=== PATIENT | female | born 1970 | race Caucasian/White ===

== ENCOUNTER 2016-06-17 08:25 | Emergency (ER) | payer OTHER ==
[~2016-06-17] VITALS: Ht 167.6 cm; Wt 109.1 kg
[~2016-06-17 08:25] MED LIST: BUPR1FIL3 SL; GABA-502 PO; HYDR-4003 PO; LEVO200T6 PO; PENI500T PO
[2016-06-17 08:33] VITALS: BP 142/94; PULSE 106; RESP 16; O2SAT 98
[2016-06-17] MEDS ORDERED: HYDR-656 PO (08:48)
--- NOTE | 2016-06-17 09:05 | ED.REPORT ---
HPI-Dental/Mouth Prob Date of Service Jun 17, 2016 ED Provider: Marla Johnson MD 46 year old female with a history of opioid dependence, currently on Suboxone presents to the ER complaining of right tooth pain. Pain is so severe that it routinely awakens her from sleep. Symptoms have been treated with Tylenol and ibuprofen with minimal relief. She states that the pain has been present for about a year, which resulted in the extraction of two right molars two months ago. At that time she felt pain in a third tooth, but the doctors felt that it could be spared. Since then, the pain has gradually worsened. She was scheduled for follow up two weeks following her extraction but was unable to make the appointment due to work obligations. Patient has an appointment for 07/10/16 at [facility]. Nursing Notes Stated Complaint: SEVERE DENTAL PAIN Chief Complaint: Dental Nursing Notes Reviewed: Yes Allergies: Coded Allergies: No Known Allergies (Unverified Allergy, Unknown, 04/20/14) Scheduled Amoxicillin (Amoxicillin) 500 Mg Capsule 500 MG PO TID Levothyroxine (Levothyroxine) 200 Mcg Tablet 200 MCG PO DAILY Scheduled PRN hydrOXYzine Hcl (HydrOXYzine Hcl) 25 Mg Tablet 25 MG PO QID PRN PRN For Anxiety General Time Seen by MD: 08:36 Chief Complaint Mouth pain, Tooth pain Hx Obtained From: Patient Arrived By: Walk-in Onset Occurred: More than a week ago... (>6 months) Symptom Duration: Since onset Pertinent Negative: Pt denies other symptoms Similar Sx Previous: Yes Past Medical History Past Medical History H/o chronic back pain Opioid dependence, currently on Suboxone Past Surgical History Left elbow surgery Family History noncontributory Smoking History Current Every Day Smoker Social History Other Social History: Lives with children, College student Ambulatory Status Independent Review of Systems Constitutional: Denies: Chills, Fever Ears / Nose / Throat: Reports: Mouth pain, Toothache, Denies: Earache bilateral, Sore throat, Throat pain Respiratory: Denies: Non-productive cough GI: Denies: Abdominal pain, Diarrhea, Nausea, Vomiting Complete sys rev & neg: except as marked. Physical Exam Initial Vital Signs Vital Signs (First) Date Time Temp Pulse Resp B/P Pulse Ox O2 Delivery O2 Flow Rate FiO2 06/17/16 08:33 36.6 106 16 142/94 98 Room Air Initial VS: Reviewed General/Constitutional: Well-developed, Well-nourished Head / Eyes: Atraumatic, Normocephalic, PERRL Extremities: Vascular intact, Neuro intact, No swelling, No tenderness Skin: Warm, Dry, No cyanosis Neurologic: Alert, Oriented, Nonfocal ENT: Airway patent, Mucous membranes moist, No facial swelling Tooth #2 tender. Moderate decay. No obvious abscess. Not grossly broken. Teeth #3 and 4 have been removed. No submandibular adenopathy. Neck: Supple, No meningismus, Full range of motion, No adenopathy, No swelling , Non-tender, No masses Re-Eval/Medical Decision Re-Evaluation/Progress : Time of Eval: 09:10 Re-Evaluation/Progress Note: Discussed physical examination findings and plan to discharge. Patient is amenable to the plan. Return precautions given. All other questions addressed. Counseled Regarding: Diagnosis, Need for follow-up, When/why to return to ED Discharge & Departure Primary Impression: Pain, dental Additional Impression: Dental abscess Disposition: Home Discharge Condition All VS Reviewed: Yes Condition: Stable Patient Instructions: Dental Abscess (ED) Additional Instructions: Take amoxicillin as prescribed. A prescription has been sent electronically to [facility] for you today. Ibuprofen as needed for pain, max of 12 daily (3 pills 4x/day or 4 pills 3x/day) . Contact [facility] to see if there is any way to expedite your appointment. Return to the ER if you develop fever, chills, nausea, vomiting, or any other worsening or concerning symptoms. Referrals: NOPCP (PCP) [facility] Jair Attestation Portions of this note were transcribed by Jennifer Aguayo. I, Dr. Johnson, personally performed the history, physical exam and medical decision-making; I reviewed and confirmed the accuracy of the information in the transcribed note. Signed by: Jair Gonzalez, 06/17/2016 at 09:37 copies to: [facility] Marla Johnson MD Jun 17, 2016 09:04 JENNIFER AGUAYO Jun 17, 2016 09:12
[2016-06-17] MEDS ORDERED: AMOX500C2 PO (09:35)
== END 2016-06-17 09:43 | disposition home or self-care (01) ==
LOC: SED 08:25
DX: K12.2 Cellulitis and abscess of mouth (principal); F11.20 Opioid dependence, uncomplicated; F17.200 Nicotine dependence, unspecified, uncomplicated; Z98.818 Other dental procedure status

== ENCOUNTER 2016-11-14 15:36 | Emergency (ER) | payer OTHER ==
[~2016-11-14] VITALS: Ht 167.6 cm; Wt 130.0 kg
[~2016-11-14 15:36] MED LIST changes: +AMOX500C2 PO; -BUPR1FIL3 SL; -GABA-502 PO; -HYDR-4003 PO; +HYDR-656 PO; -PENI500T PO
[2016-11-14 15:40] VITALS: BP 152/99; PULSE 99; RESP 20; O2SAT 95
--- NOTE | 2016-11-14 17:02 | ED.REPORT ---
HPI-Back Pain 40 and Over Date of Service Nov 14, 2016 ED Provider: Doc,Ed MD History of Present Illness: back pain worse times a month. Saw Dr. Baca at residency clinic. doing gapabentin. started prednisone from urgent care. right leg pain and shoulder pain also. work at the [employer], started about 3 months ago. Appointment 11/26 at [facility] with ortho. long hx of back pain. on day 3 of prednisone 60 mg. on planned lay off at work now. supposed to return to work on 11/27. last mri 10/03 pain Nursing Notes Stated Complaint: BACK PAIN Chief Complaint: Back Pain or Injury Nursing Notes Reviewed: Yes Allergies: Coded Allergies: No Known Allergies (Unverified Allergy, Unknown, 11/14/16) Scheduled Amoxicillin (Amoxicillin) 500 Mg Capsule 500 MG PO TID Levothyroxine (Levothyroxine) 200 Mcg Tablet 200 MCG PO DAILY Scheduled PRN hydrOXYzine Hcl (HydrOXYzine Hcl) 25 Mg Tablet 25 MG PO QID PRN PRN For Anxiety General Time Seen by MD: 17:01 Chief Complaint Back pain Hx Obtained From: Patient Sudden in Onset?: No Onset Occurred: More than a week ago... (1 month) Symptom Duration: Since onset Caused by: Spontaneous/no mechanism Severity: Current: Pain level 8 out of 10 Recent Healthcare: Recent doctor visit (3 visits in the last week) Past Medical History Past Medical History H/o chronic back pain. no suboxone at present 10/2016 Past Surgical History Left elbow surgery Family History noncontributory Smoking History Current Every Day Smoker (3 cig a day for 30 years) Social History clean for 3 years Alcohol Use: Denies alcohol use Drug Use: Denies drug use Other Social History: Lives with children, College student Occupation lives with boyfriend,11/14/2016 Ambulatory Status Independent Review of Systems Basic Review of Systems Eyes: Vision NL, No discharge Skin: No bruising, No rash, No itch Psychiatric: Normal thought content Physical Exam Initial Vital Signs Vital Signs (First) Date Time Temp Pulse Resp B/P Pulse Ox O2 Delivery O2 Flow Rate FiO2 11/14/16 15:40 36.9 99 20 152/99 95 11/14/16 19:41 Room Air Initial VS: Reviewed, Vital signs normal Head / Eyes: Atraumatic, Normocephalic, PERRL ENT: Mucous membranes moist, Conjunctiva normal, No scleral icterus Neck: Supple, Non-tender, Full range of motion Lymphatic: No lymphadenopathy Extremities: Vascular intact, Neuro intact, No swelling, No tenderness Skin: Warm, Dry, No cyanosis Psychiatric: Mood/affect normal, Behavior normal, Normal thought content General/Constitutional: Awake, Alert, No acute distress, Well appearing, Well developed, Well hydrated Respiratory / Chest: Atraumatic, Breath sounds NL, Breath sounds = bilat, No respiratory distress Cardiovascular: Heart rate NL, Regular rhythm, Heart sounds NL, No gallop Abdomen: Atraumatic, Soft, Non-tender Back: Atraumatic, Inspection NL Flank / Spine / Paraspinal: Positive: Lumbar spine tender... (Low) Neurologic: Oriented X3, Speech NL, No motor deficits parathesia on right leg Neck: Atraumatic, Supple, No meningismus, Full range of motion Interpretation & Diagnostics Interpretation & Diagnostics: ECHNIQUE: Noncontrast sagittal T1 spine echo and T2 fast spin echo, sagittal STIR, axial T1 and T2 fast spin echo through the thoracic spine. COMPARISON: None. FINDINGS: Image quality: Good Alignment and Curvature: There is normal bony alignment. Bone Marrow: Marrow is of normal overall signal. No acute vertebral body compression fractures. Spinal Cord: Visualized spinal cord is normal in size and signal. Paraspinous Soft Tissues: No paravertebral masses. Miscellaneous: On axial images, central canal and foramina appear widely patent at all scanned levels. The only abnormality is at the very superior aspect of the study, and the lower cervical spine there is an large herniated C6-7 disc right sagittal. IMPRESSION: 1. There is no abnormality seen in the thoracic spine. 2. On the very margins of the image and incompletely imaged is a large herniated C6-7 disc that likely impinges upon the right ventral aspect of the cord and potentially could involve the C7 or C8 nerve roots on the right side. Dictated by: Bandar George M.D. on 11/14/2016 at 18:59 Approved by: Bandar George M.D. on 11/14/2016 at 19:06 INDICATIONS: increasing pain, leg is numb TECHNIQUE: Noncontrast sagittal T1 spin echo and T2 fast echo, sagittal STIR, axial T1 and T2 fast spin echo through the lumbar spine. In cases with scoliosis, additional coronal T2 fast spin echo may be performed. COMPARISON: None. FINDINGS: Image quality: Moderate to fair because of patient's size Alignment and Curvature: There is normal bony alignment. Bone Marrow: Marrow is of normal overall signal. No acute vertebral body compression fractures. Spinal Cord: Conus medullaris terminates at the L1 level. Visualized cord demonstrates normal signal and size. Paraspinous Soft Tissues: No paravertebral masses. L1-L2: There is mild diffuse bulging of disc and posterior element hypertrophy. This causes mild narrowing of the central canal at the disc level. There is no foraminal narrowing appreciated. L2-L3: There is mild diffuse bulging of the disc and mild facet hypertrophy. No central canal or foraminal narrowing is seen. L3-L4: There is posterior element hypertrophy. There is no central canal stenosis. There is no right but there is mild left foraminal narrowing. L4-L5: There is no disc disease. Facet hypertrophy is present. There is no right but there is mild left foraminal narrowing. No central canal stenosis. L5-S1: No disc disease is seen. Facet hypertrophy is present causing mild left foraminal narrowing. No mass seen on the right and there is no central canal stenosis IMPRESSION: 1. This degenerative disease with mild diffuse bulging is present at L1-2 and L2-3. There is posterior element hypertrophy at all levels in the lumbar spine. 2. There is mild narrowing of the central canal at L1-2. No other central canal stenosis is seen. 3. There is mild foraminal narrowing on the left at L3-4, L4-5, and L5-S1. Dictated by: Bandar George M.D. on 11/14/2016 at 19:06 Approved by: Bandar George M.D. on 11/14/2016 at 19:13 Lab Results Interpretation Result Diagram: 11/14/16 1847 11/14/16 1847 Test 11/14/16 18:47 White Blood Count 16.0th/mm3 (3.8-10.1) Red Blood Count 5.02mil/mm3 (3.90-5.20) Hemoglobin 15.4g/dL (12.0-15.6) Hematocrit 44.6% (35.0-46.0) Mean Corpuscular Volume 88.8fL (81-100) Mean Corpuscular Hemoglobin 30.7pg (27.0-35.0) Mean Corpuscular Hemoglobin Concent 34.5% (32.0-37.0) Red Cell Distribution Width 13.5% (12.3-15.4) Platelet Count 324bil/L (150-400) Neutrophils (%) (Auto) 81.1% (40-74) Lymphocytes (%) (Auto) 11.5% (14-46) Monocytes (%) (Auto) 4.4% (4-12) Eosinophils (%) (Auto) 0.3% (0-5) Basophils (%) (Auto) 0.3% (0-3) Sodium Level 137mEq/L (134-144) Potassium Level 4.5mEq/L (3.5-5.2) Chloride Level 101mEq/L (97-108) Carbon Dioxide Level 21mmol/L (18-29) Blood Urea Nitrogen 21mg/dL (6-24) Creatinine 0.77mg/dL (0.57-1.00) Estimat Glomerular Filtration Rate 116mL/min (>59) Glucose Level 164mg/dL (60-99) Calcium Level 10.0mg/dL (8.5-10.1) Total Bilirubin 0.4mg/dL (0.0-1.2) Aspartate Amino Transf (AST/SGOT) 12U/L (0-50) Alanine Aminotransferase (ALT/SGPT) 19U/L (0-32) Alkaline Phosphatase 103U/L (25-150) Total Protein 8.2g/dL (6.4-8.4) Albumin 4.6g/dL (3.4-5.0) Hold Curiel Top Tube Received (Received) Re-Eval/Medical Decision Med Decision/Clinical Course 46 year old female presents with acute on chronic back pain. PAtient states was standing at the table using her arm and the lower back started to have increasing pain. Patient has been started on prednisone 60 mg , not reporting any improvement. Patient does report hx of IV drug use. MRI does not show anything acute. Labs are unremarkable. Given a dose of dilaulid with has helped decrease her pain. Referall provided for neurosurgeon. NO sign of cauda equina Discharge & Departure Impression: Primary Impression: Low back pain Chronicity: acute Back pain laterality: bilateral Sciatica presence: with sciatica Additional Impression: Shoulder pain, right Chronicity: acute Qualified Code: M25.511 - Pain in right shoulder Disposition: Home Patient Instructions: Lower Back Exercises (ED), Lumbar Facet Block (GEN), Lumbar Nerve Root Injection (DC), Lumbar Radiculopathy (ED), Upper Back Exercises (GEN) Additional Instructions: Your labs are normal with the exception of a WBC at 16 and elevated blood sugar at 165. Both of these are normal with the prednisone that you are on. Please call and see if you are seeing a neurosurgeon. Please call [facility] [address] [place] [address] [address] in [place] Phone number is [phone] for follow up. The prednisone can cause some heartburn. Please start some medication to help prevent it. Protonix 40 mg daily, carafate 1 gm suspension 4 times a day will be helpful. Please continue with movement, walking is very good. Use some of the back exercises that are included. A trial of ice would be helpful also, 15 minutes on and 15 minutes off. For your pain use percocet 1 up to 2 times a day as needed for severe unrelenting pain. No ibuprofen while taking prednisone. I am sorry this is happening to you. Referrals: Kayley Robbins MD (PCP) EDSupervising Provider for APC: Moi Egan MD copies to: Kayley Robbnis MD, Sue ARNP Nov 14, 2016 17:01
[2016-11-14] MEDS ORDERED: HYDROmorphone 1 mg/mL Inj IM ONE (17:35)
[2016-11-14] MEDS ORDERED: LidocaineVisc 2%:Antacid 1:1 10 mL Syringe PO ONE (18:30)
[2016-11-14] MEDS ORDERED: Pantoprazole 40 mg ER24 Tablet PO ONE (18:30)
[2016-11-14] MEDS ORDERED: Sucralfate 100 mg/mL 10 mL Suspension PO ONE (18:30)
[2016-11-14 18:51] LABS: BASOPHILS % (AUTO) 0.3 % (0-3); EOSINOPHILS % (AUTO) 0.3 % (0-5); MONOCYTES % (AUTO) 4.4 % (4-12); Mean Corpuscular Hemoglobin 30.7 pg (27.0-35.0); Mean Corpuscular Volume 88.8 fL (81-100); NEUTROPHILS % (AUTO) 81.1 % (40-74); Platelet Count 324 bil/L (150-400)
--- NOTE | 2016-11-14 19:08 | DRSVH ---
PROCEDURE: MRI THORACIC SPINE WITHOUT CONTRAST ([id number]) INDICATIONS: increasing pain, leg is numb TECHNIQUE: Noncontrast sagittal T1 spine echo and T2 fast spin echo, sagittal STIR, axial T1 and T2 fast spin ec ho through the thoracic spine. COMPARISON: None. FINDINGS: Image quality: Good Alignment and Curvature: There is normal bony alignment. Bone Marrow: Marrow is of normal overall signal. No acute vertebral body compression fractures. Spinal Cord: Visualized spinal cord is normal in size and signal. Paraspinous Soft Tissues: No paravertebral masses. Miscellaneous: On axial images, central canal and foramina appear widely patent at all scanned level s. The only abnormality is at the very superior aspect of the study, and the lower cervical spine th ere is an large herniated C6-7 disc right sagittal. IMPRESSION: 1. There is no abnormality seen in the thoracic spine. 2. On the very margins of the image and incompletely imaged is a large herniated C6-7 disc that likel y impinges upon the right ventral aspect of the cord and potentially could involve the C7 or C8 nerve roots on the right side. Dictated by: Bandar George M.D. on 11/14/2016 at 18:59 Approved by: Bandar George M.D. on 11/14/2016 at 19:06
--- NOTE | 2016-11-14 19:15 | DRSVH ---
PROCEDURE: MRI LUMBAR SPINE WITHOUT CONTRAST ([id number]) INDICATIONS: increasing pain, leg is numb TECHNIQUE: Noncontrast sagittal T1 spin echo and T2 fast echo, sagittal STIR, axial T1 and T2 fast spin echo thr ough the lumbar spine. In cases with scoliosis, additional coronal T2 fast spin echo may be performe d. COMPARISON: None. FINDINGS: Image quality: Moderate to fair because of patient's size Alignment and Curvature: There is normal bony alignment. Bone Marrow: Marrow is of normal overall signal. No acute vertebral body compression fractures. Spinal Cord: Conus medullaris terminates at the L1 level. Visualized cord demonstrates normal signa l and size. Paraspinous Soft Tissues: No paravertebral masses. L1-L2: There is mild diffuse bulging of disc and posterior element hypertrophy. This causes mild narr owing of the central canal at the disc level. There is no foraminal narrowing appreciated. L2-L3: There is mild diffuse bulging of the disc and mild facet hypertrophy. No central canal or fora stephen narrowing is seen. L3-L4: There is posterior element hypertrophy. There is no central canal stenosis. There is no right but there is mild left foraminal narrowing. L4-L5: There is no disc disease. Facet hypertrophy is present. There is no right but there is mild le ft foraminal narrowing. No central canal stenosis. L5-S1: No disc disease is seen. Facet hypertrophy is present causing mild left foraminal narrowing. N o mass seen on the right and there is no central canal stenosis IMPRESSION: 1. This degenerative disease with mild diffuse bulging is present at L1-2 and L2-3. There is posterio r element hypertrophy at all levels in the lumbar spine. 2. There is mild narrowing of the central canal at L1-2. No other central canal stenosis is seen. 3. There is mild foraminal narrowing on the left at L3-4, L4-5, and L5-S1. Dictated by: Bandar George M.D. on 11/14/2016 at 19:06 Approved by: Bandar George M.D. on 11/14/2016 at 19:13
[2016-11-14 19:41] VITALS: BP 159/104; PULSE 86; RESP 18; O2SAT 95
[2016-11-14 19:52] VITALS: BP 159/104; PULSE 86; RESP 18; O2SAT 95
== END 2016-11-14 19:52 | disposition home or self-care (01) ==
LOC: SED 15:36
DX: M54.41 Lumbago with sciatica, right side (principal); M25.511 Pain in right shoulder; G89.29 Other chronic pain; F17.200 Nicotine dependence, unspecified, uncomplicated
CPT/HCPCS: 36415; 72146; 72148; 80053; 85025; 96372; 99284; J1170